=== PATIENT | female | born 1965 | race Caucasian/White ===

== ENCOUNTER 2021-02-25 14:41 | Emergency (ER) | payer BC, SELFPAY ==
[2021-02-25 14:48] VITALS: BP 139/87; PULSE 91; RESP 18; TEMP 37.1; O2SAT 98
--- NOTE | 2021-02-25 15:15 | DI.RAD_ITS ---
Exam(s) XR ABDOMEN FLAT UPRIGHT EXAM: XR ABDOMEN FLAT UPRIGHT CLINICAL HISTORY: abd pain. TECHNIQUE: 2D digital imaging was performed. COMPARISON: No exams were available for comparison FINDINGS: Supine and upright views the abdomen reveal nonspecific bowel gas pattern. No evidence of bowel obst ruction. No free air. Phleboliths are seen both sides of pelvis. No obvious calcification over the kidneys or course of the ureters. Chronic multilevel degenerative disc disease in the lumbar spine noted. IMPRESSION: No bowel obstruction. No free air. DATA REPOSITORY: RADIATION DOSE DELIVERED:
[2021-02-25] MEDS: FAMOTIDINE 20 MG/50 ML BAG 200 MG IVPB (15:31)
[2021-02-25] MEDS: Mylanta Suspension 30 ML CUP PO (15:32)
[2021-02-25 15:36] LABS: Abs Immature Grans 0.04 10^3/uL (0.0-0.06); Absolute Basophil Count 0.04 10^3/uL (0.0-0.2); Absolute Eosinophil Count 0.29 10^3/uL (0.0-0.7); Absolute Lymphocyte Count 1.43 10^3/uL (1.2-3.4); Absolute Monocyte Count 0.85 10^3/uL (0.1-0.8); Basophils % 0.4; Eosinophils % 2.6; HCT 38.6 % (36.0-46.0); HGB 13.1 g/dL (11.2-15.7); Immature Grans % 0.4; Lymphocytes % 12.8; MCH 28.1 pg (27.0-33.0); MCHC 33.9 % (32.0-36.0); MCV 82.8 fL (80-95); MPV 9.5 fL (8.0-11.0); Monocytes % 7.6; Neutrophils % 76.2; Nucleated RBC 0 %; Platelet Count 272 10^3/uL (130-400); RBC 4.66 10^6/uL (3.93-5.22); RDW 12.3 % (11.7-14.6); RDW-SD 37.2 fL; WBC 11.21 10^3/uL (4.4-10.8)
[2021-02-25 15:44] LABS: Absolute Neutrophil Count 8.54 10^3/uL (1.2-6.7)
[2021-02-25 15:47] LABS: Magnesium 2.3 mg/dL (1.8-2.4)
[2021-02-25 15:48] LABS: ALT 26 U/L (14-59); AST 14 U/L (15-37); Albumin 3.9 g/dL (3.4-5.0); Alkaline Phosphatase 99 U/L (46-116); Anion Gap 9.7 mmol/L (3-11); BUN 11 mg/dL (7-18); Bilirubin, Total 0.8 mg/dL (0.2-1.0); CO2 26.3 mmol/L (21.0-32.0); CREATININE 0.8 mg/dL (0.55-1.02); Calcium 9.1 mg/dL (8.5-10.1); Chloride 100 mmol/L (98-107); Glucose 102 mg/dL (74-106); Lipase 103 U/L (73-393); Potassium 3.6 mmol/L (3.5-5.1); Sodium 136 mmol/L (136-145)
[2021-02-25] MEDS: Pantoprazole 40 MG VIAL (17:23)
--- NOTE | 2021-02-25 18:00 | ED.GENADUL_ITS ---
Discharge Plan Disposition Patient Disposition: HOME Condition: Stable Discharge Details Clinical Impression: Gastritis, Epigastric abdominal pain Primary Care Provider: Sherron,Local ED Provider: David Mckeon Home Meds and New Rx's Prescriptions: New pantoprazole [Protonix] 40 mg tablet,delayed release (DR/EC) 40 mg PO DAILY Qty: 30 RF: 0 famotidine [Pepcid] 20 mg tablet 20 mg PO BID Qty: 60 RF: 0 Continued Zyrtec 10 mg Capsule 10 mg PO DAILY RF: 0 Discharge Instructions Instructions: Gastritis (ED) Additional Instructions: Please take antiacid as prescribed. If pain persists you will need to follow-up with a nude model or [facility] general surgery for additional diagnostic testing. Please follow-up with your primary care physician. Call tomorrow. Please return to the emergency department immediately for any worsening or new concerning symptoms. Referrals: [facility] [Provider Group] Discharge Data Discharge Date/Time-TO BE ENTERED AT DEPARTURE: 02/25/21 18:04 Medical Decision Making 55-year-old female here with epigastric abdominal pain. Patient was significant life stressors recently. Patient notes poor appetite, vomiting on Monday. Suspect gastric ulcer versus gastritis. Abdominal x-ray reviewed and interpreted by radiology: No free air. No obstruction. Patient was given Pepcid IV and Protonix IV. She was reassessed and pain did improve. Plan to discharge with outpatient follow-up to be scheduled should symptoms not continue to improve. Disposition decision was made weighing the risks and benefits of hospitalization versus outpatient treatment, the risk for further decompensation, and the patient's wishes. The patient was stable and requested discharge. Prior to discharge, my usual and customary return precautions were reviewed with the patient - this included follow-up instructions and reason to return to the emergency department if condition worsens, does not improve as expected, or other new concerns arise. Lab Data Lab results reviewed: Yes I reviewed the patient's lab results. Labs: Laboratory Tests Range/Units 02/25/21 02/25/21 02/25/21 15:30 15:30 15:30 WBC (4.4-10.8) 10^3/uL 11.21 H RBC (3.93-5.22) 10^6/uL 4.66 Hgb (11.2-15.7) g/dL 13.1 Hct (36.0-46.0) % 38.6 MCV (80-95) fL 82.8 MCH (27.0-33.0) pg 28.1 MCHC (32.0-36.0) % 33.9 RDW (11.7-14.6) % 12.3 Plt Count (130-400) 10^3/uL 272 MPV (8.0-11.0) fL 9.5 Immature Gran % 0.4 Neutrophils % 76.2 Lymphocytes % 12.8 Monocytes % 7.6 Eosinophils % 2.6 Basophils % 0.4 Nucleated RBC % % 0 Absolute Neutrophils (1.2-6.7) 10^3/uL 8.54 H Absolute Lymphocytes (1.2-3.4) 10^3/uL 1.43 Absolute Monocytes (0.1-0.8) 10^3/uL 0.85 H Absolute Eosinophils (0.0-0.7) 10^3/uL 0.29 Absolute Basophils (0.0-0.2) 10^3/uL 0.04 Sodium (136-145) mmol/L 136 Potassium (3.5-5.1) mmol/L 3.6 Chloride (98-107) mmol/L 100 Carbon Dioxide (21.0-32.0) mmol/L 26.3 Anion Gap (3-11) mmol/L 9.7 BUN (7-18) mg/dL 11 Creatinine (0.55-1.02) mg/dL 0.8 Estimated GFR/1.73 m2 (mL/min/1.73m2) >= 60.00 Glucose (74-106) mg/dL 102 Calcium (8.5-10.1) mg/dL 9.1 Magnesium (1.8-2.4) mg/dL 2.3 Total Bilirubin (0.2-1.0) mg/dL 0.8 AST (15-37) U/L 14 L ALT (14-59) U/L 26 Alkaline Phosphatase (46-116) U/L 99 Total Protein (6.4-8.2) g/dL 8.0 Albumin (3.4-5.0) g/dL 3.9 Lipase (73-393) U/L 103 Patient ABO/Rh Antibody Screen Range/Units 02/25/21 15:30 WBC (4.4-10.8) 10^3/uL RBC (3.93-5.22) 10^6/uL Hgb (11.2-15.7) g/dL Hct (36.0-46.0) % MCV (80-95) fL MCH (27.0-33.0) pg MCHC (32.0-36.0) % RDW (11.7-14.6) % Plt Count (130-400) 10^3/uL MPV (8.0-11.0) fL Immature Gran % Neutrophils % Lymphocytes % Monocytes % Eosinophils % Basophils % Nucleated RBC % % Absolute Neutrophils (1.2-6.7) 10^3/uL Absolute Lymphocytes (1.2-3.4) 10^3/uL Absolute Monocytes (0.1-0.8) 10^3/uL Absolute Eosinophils (0.0-0.7) 10^3/uL Absolute Basophils (0.0-0.2) 10^3/uL Sodium (136-145) mmol/L Potassium (3.5-5.1) mmol/L Chloride (98-107) mmol/L Carbon Dioxide (21.0-32.0) mmol/L Anion Gap (3-11) mmol/L BUN (7-18) mg/dL Creatinine (0.55-1.02) mg/dL Estimated GFR/1.73 m2 (mL/min/1.73m2) Glucose (74-106) mg/dL Calcium (8.5-10.1) mg/dL Magnesium (1.8-2.4) mg/dL Total Bilirubin (0.2-1.0) mg/dL AST (15-37) U/L ALT (14-59) U/L Alkaline Phosphatase (46-116) U/L Total Protein (6.4-8.2) g/dL Albumin (3.4-5.0) g/dL Lipase (73-393) U/L Patient ABO/Rh AB Positive Antibody Screen NEGATIVE HPI General Mode of arrival: ambulatory . Date/Time Provider Initiated Documentation: 02/25/21 14:56 . Limitations to Documentation: no limitations . Information obtained by: patient . HPI Narrative: 55-year-old female presents with chief complaint of abdominal pain. Patient notes epigastric abdominal pain over the past 6 days. Pain moderate to severe at times. No associated fever. She did have an episode of vomiting last week. Patient notes that she did have dark-colored stool. No bright red blood per rectum. Patient has tried Tums without significant relief. Patient notes that she recently has had 2 deaths in the family and has been quite stressed and anxious about this. Related Data Home Medications Medication Instructions Recorded Confirmed Zyrtec 10 mg PO DAILY 02/25/21 02/25/21 famotidine [Pepcid] 20 mg PO BID #60 tab 02/25/21 pantoprazole [Protonix] 40 mg PO DAILY #30 tab 02/25/21 Previous Rx's Medication Instructions Recorded famotidine [Pepcid] 20 mg PO BID #60 tab 02/25/21 pantoprazole [Protonix] 40 mg PO DAILY #30 tab 02/25/21 Allergies Allergy/AdvReac Type Severity Reaction Status Date / Time No Known Allergies Allergy Unverified 02/25/21 14:50 General Stated Complaint: Abd Prob MAINE: 3 Review of Systems All systems reviewed & are unremarkable except as noted in HPI and below Constitutional Constitutional: Denies fever(s) Gastrointestinal Gastrointestinal: Reports as per HPI Psychiatric Psychiatric: Reports as per HPI [facility] Social History Smoking/Tobacco Use Status: Never Smoking risk assessment performed?: Yes Alcohol Intake: former Substance use type: does not use Do you feel safe at home: Yes Do you feel safe in your relationship?: Yes Exam Const General: cooperative and no acute distress HENMT Mouth: moist mucous membranes Eyes Conjunctivae: normal conjunctivae Sclera: normal sclerae Neck Neck: trachea midline and supple Resp Auscultation: clear to auscultation bilaterally, no rales, no rhonchi and no wheezes Cardio Rate: regular rate and not tachycardic Rhythm: regular rhythm GI Palpation: soft, not firm, no guarding, no masses, not rigid and tender in the epigastrum Auscultation: normal bowel sounds Skin General skin exam: no rashes or lesions noted Neuro General: patient alert, patient awake, patient oriented x3 and tone normal Extrem General: no edema Psych Appearance: grossly normal Mental Status: mental status grossly normal Speech and Movement: speech and movement normal Course Vital Signs Vital signs: Vital Signs Temperature 37.1 C 02/25/21 14:48 Pulse 91 H 02/25/21 14:48 Respiratory Rate 18 02/25/21 14:48 Blood Pressure 139/87 02/25/21 14:48 Pulse Oximetry 98 02/25/21 14:48 Temperature 37.1 C 02/25/21 14:48 Temperature Source Temporal Artery Scan 02/25/21 14:48 Pulse 91 H 02/25/21 14:48 Respiratory Rate 18 02/25/21 14:48 Respiratory Effort Non-Labored 02/25/21 14:51 Blood Pressure 139/87 02/25/21 14:48 Blood Pressure Position Sitting 02/25/21 14:48 Pulse Oximetry 98 02/25/21 14:48 Oxygen Delivery Method Room Air 02/25/21 14:48 Oxygen Flow Rate 0 02/25/21 14:48 Pain Level 4 02/25/21 14:48 Lab/Test Results Lab/Test Results: Laboratory Tests Range/Units 02/25/21 02/25/21 02/25/21 15:30 15:30 15:30 WBC (4.4-10.8) 10^3/uL 11.21 H RBC (3.93-5.22) 10^6/uL 4.66 Hgb (11.2-15.7) g/dL 13.1 Hct (36.0-46.0) % 38.6 MCV (80-95) fL 82.8 MCH (27.0-33.0) pg 28.1 MCHC (32.0-36.0) % 33.9 RDW (11.7-14.6) % 12.3 Plt Count (130-400) 10^3/uL 272 MPV (8.0-11.0) fL 9.5 Immature Gran % 0.4 Neutrophils % 76.2 Lymphocytes % 12.8 Monocytes % 7.6 Eosinophils % 2.6 Basophils % 0.4 Nucleated RBC % % 0 Absolute Neutrophils (1.2-6.7) 10^3/uL 8.54 H Absolute Lymphocytes (1.2-3.4) 10^3/uL 1.43 Absolute Monocytes (0.1-0.8) 10^3/uL 0.85 H Absolute Eosinophils (0.0-0.7) 10^3/uL 0.29 Absolute Basophils (0.0-0.2) 10^3/uL 0.04 Sodium (136-145) mmol/L 136 Potassium (3.5-5.1) mmol/L 3.6 Chloride (98-107) mmol/L 100 Carbon Dioxide (21.0-32.0) mmol/L 26.3 Anion Gap (3-11) mmol/L 9.7 BUN (7-18) mg/dL 11 Creatinine (0.55-1.02) mg/dL 0.8 Estimated GFR/1.73 m2 (mL/min/1.73m2) >= 60.00 Glucose (74-106) mg/dL 102 Calcium (8.5-10.1) mg/dL 9.1 Magnesium (1.8-2.4) mg/dL 2.3 Total Bilirubin (0.2-1.0) mg/dL 0.8 AST (15-37) U/L 14 L ALT (14-59) U/L 26 Alkaline Phosphatase (46-116) U/L 99 Total Protein (6.4-8.2) g/dL 8.0 Albumin (3.4-5.0) g/dL 3.9 Lipase (73-393) U/L 103 Patient ABO/Rh Antibody Screen Range/Units 02/25/21 15:30 WBC (4.4-10.8) 10^3/uL RBC (3.93-5.22) 10^6/uL Hgb (11.2-15.7) g/dL Hct (36.0-46.0) % MCV (80-95) fL MCH (27.0-33.0) pg MCHC (32.0-36.0) % RDW (11.7-14.6) % Plt Count (130-400) 10^3/uL MPV (8.0-11.0) fL Immature Gran % Neutrophils % Lymphocytes % Monocytes % Eosinophils % Basophils % Nucleated RBC % % Absolute Neutrophils (1.2-6.7) 10^3/uL Absolute Lymphocytes (1.2-3.4) 10^3/uL Absolute Monocytes (0.1-0.8) 10^3/uL Absolute Eosinophils (0.0-0.7) 10^3/uL Absolute Basophils (0.0-0.2) 10^3/uL Sodium (136-145) mmol/L Potassium (3.5-5.1) mmol/L Chloride (98-107) mmol/L Carbon Dioxide (21.0-32.0) mmol/L Anion Gap (3-11) mmol/L BUN (7-18) mg/dL Creatinine (0.55-1.02) mg/dL Estimated GFR/1.73 m2 (mL/min/1.73m2) Glucose (74-106) mg/dL Calcium (8.5-10.1) mg/dL Magnesium (1.8-2.4) mg/dL Total Bilirubin (0.2-1.0) mg/dL AST (15-37) U/L ALT (14-59) U/L Alkaline Phosphatase (46-116) U/L Total Protein (6.4-8.2) g/dL Albumin (3.4-5.0) g/dL Lipase (73-393) U/L Patient ABO/Rh AB Positive Antibody Screen NEGATIVE
[2021-02-25 18:07] VITALS: BP 139/87; PULSE 91; RESP 18; TEMP 37.1; O2SAT 98
== END 2021-02-25 18:04 | disposition home or self-care (01) ==
PROVIDERS: Emergency Provider Student in an Organized Health Care Education/Training Program
DX: K29.00 Acute gastritis without bleeding (principal); R10.13 Epigastric pain
CPT/HCPCS: 80053; 83690; 86850; 86900; 86901; 96374; 96375; 99284; 74019; 83735; 85025; 99283

== ENCOUNTER 2023-10-25 15:19 | Outpatient (CLI) | payer BC, SELFPAY ==
--- NOTE | 2023-10-25 06:00 | DI.RAD_ITS ---
Exam(s) XR PAIN CLINIC LUMBAR SP 2V EXAM: XR PAIN CLINIC LUMBAR SP 2V CLINICAL HISTORY: DX; Lumbar radiculopathy TECHNIQUE: 2D and realtime digital imaging was performed. Radiologist not present. CONTRAST MATERIAL: None. COMPARISON: No exams were available for comparison FINDINGS: Fluoroscopy was provided for pain management therapy. Please refer to procedure report or details. Radiation Exposure Index: Ka,r=12.04 mGy IMPRESSION: As above. RADIATION DOSE DELIVERED:
[2023-10-25 15:30] VITALS: BP 143/90; PULSE 69; RESP 20; TEMP 36.7; O2SAT 99
[2023-10-25 16:05] VITALS: BP 139/95; PULSE 69; RESP 22; O2SAT 98
[2023-10-25] MEDS: methylPREDNISolone ACETATE 80 MG/ML VIAL IJ (16:07)
[2023-10-25] MEDS: Epidural Tray 1 EACH MC (16:07)
[2023-10-25] MEDS: Omnipaque 240 MG/ML 50 ML BTL IJ (16:07)
--- NOTE | 2023-10-25 16:16 | PDOC.PAIN ---
Date of service: 10/25/23 Time of Service: 16:16 Pain Managment Procedure Note Procedure Note Procedure Note: PROCEDURE NOTE LUMBAR EPIDURAL STEROID INJECTION Date of Service: October 25, 2023 Patient:Antonette Sargent? Provider: Heber Hudson DO, MPH Antonette Wood has been referred to the [facility] for a lumbar epidural steroid injection. Pre-operative diagnosis: Lumbosacral Radiculopathy Post-operative diagnosis: Same Pre-Procedure Pain: VAS= 5 /10 Comments: I previously evaluated her in the office. Her symptoms are unchanged. Antonette was interviewed and the medical record was reviewed.? There were no medical, pharmacologic, radiographic or other structural contraindications to attempting fluoroscopically guided Lumbar epidural steroid injection.? Risks, potential side effects, indications, and potential benefits of the procedure were reviewed with Antonette.? Questions and concerns were addressed.? After it was clear that Antonette was fully informed about the procedure, the printed consent form was signed by the patient and myself.? Antonette was placed in the prone position on the fluoroscopy table and automated blood pressure cuff and pulse oximeter applied. The skin entry point for entering/approaching the epidural space for the lumbar epidural steroid injection was marked. Following thorough chlorhexadine preparation of the skin and draping and 1% lidocaine infiltration of the skin entry point and subcutaneous tissues, an 18 gauge Touhy needle was placed and advanced under fluoroscopic guidance and with loss of resistance technique into the L5-S1 epidural space. Needle tip placement and depth were aided and confirmed by fluoroscopy. There was no paresthesia or return of blood or CSF through the needle. 1 mls of Omnipaque 240 was injected with clear epidural spread confirmed with fluoroscopy. 80 mg of Depo-Medrol was? injected. This was followed by 1 ml of preservative-free normal saline to flush the steroid out of the needle. There was no unusual discomfort expressed by Antonette. The needle was withdrawn without difficulty. (49 mls of Omnipaque was wasted) Antonette was observed and was without hemodynamic, neurologic, or allergic reactions.? Fluoroscopic images were digitally archived. Antonette's vital signs were stable throughout the procedure and were as recorded in nursing records. Follow up plans and appointments were discussed with Antonette. Post procedure instruction was given as documented in nursing records and having met discharge criteria Antonette was discharged from the [facility]. COMMENTS: No apparent complications. Post-procedure pain: VAS= 0/10. Antonette to contact [facility] as needed. If at least 50% improvement in pain and/or function for at least 3 months is achieved, this procedure can be repeated. I personally performed this entire procedure. HEBER HUDSON DO, MPH ABPMR-subspecialty board certification in Pain Medicine [facility] [facility]
== END 2023-10-25 15:20 | disposition home or self-care (01) ==
LOC: PC 15:21
PROVIDERS: PCP Family Medicine; Visit Provider Preventive Medicine Occupational Medicine
DX: M54.17 Radiculopathy, lumbosacral region
CPT/HCPCS: 62323; 72100; J1010; Q9967

== ENCOUNTER 2024-02-28 16:53 | Outpatient (CLI) | payer BC, SELFPAY ==
--- NOTE | 2024-02-28 06:00 | DI.RAD_ITS ---
Exam(s) XR PAIN CLINIC LUMBAR SP 2V EXAM: XR PAIN CLINIC LUMBAR SP 2V CLINICAL HISTORY: DX: Lumbar Radiculopathy. TECHNIQUE: Fluoroscopy was provided for the referring physician for guidance with performing pain cl inic injection procedure. COMPARISON: No exams were available for comparison FINDINGS: Please see procedure note for details. Fluoro time: 17 seconds RADIATION DOSE DELIVERED: Ka,r=3.9 mGy
[2024-02-28 17:15] VITALS: BP 159/100; PULSE 62; RESP 14; TEMP 36.3; O2SAT 98
[2024-02-28 17:41] VITALS: PULSE 68; O2SAT 98
[2024-02-28] MEDS: Omnipaque 240 MG/ML 50 ML BTL IJ (17:47)
[2024-02-28] MEDS: methylPREDNISolone ACETATE 80 MG/ML VIAL IJ (17:48)
[2024-02-28] MEDS: Epidural Tray 1 EACH MC (17:48)
[2024-02-28 17:50] VITALS: BP 186/115; PULSE 66
--- NOTE | 2024-02-28 17:51 | PDOC.PAIN_ITS ---
Date of service: 02/28/24 Time of Service: 17:51 Pain Managment Procedure Note Procedure Note Procedure Note: PROCEDURE NOTE LUMBAR EPIDURAL STEROID INJECTION Date of Service: February 28, 2024 Patient:Antonette Sargent? Provider: Heber Hudson DO, MPH Antonette Wood has been referred to the [facility] for a lumbar epidural steroid injection. Pre-operative diagnosis: Lumbosacral Radiculopathy Post-operative diagnosis: Same Pre-Procedure Pain: VAS= 4 /10 Comments: She has her last LESI on 10/25/23 and had >60% pain relief for >3 months. This pain has returned. Antonette was interviewed and the medical record was reviewed.? There were no medical, pharmacologic, radiographic or other structural contraindications to attempting fluoroscopically guided Lumbar epidural steroid injection.? Risks, potential side effects, indications, and potential benefits of the procedure were reviewed with Antonette.? Questions and concerns were addressed.? After it was clear that Antonette was fully informed about the procedure, the printed consent form was signed by the patient and myself.? Antonette was placed in the prone position on the fluoroscopy table and automated blood pressure cuff and pulse oximeter applied. The skin entry point for entering/approaching the epidural space for the lumbar epidural steroid injection was marked. Following thorough chlorhexadine preparation of the skin and draping and 1% lidocaine infiltration of the skin entry point and subcutaneous tissues, an 18 gauge Touhy needle was placed and advanced under fluoroscopic guidance and with loss of resistance technique into the L5-S1 epidural space. Needle tip placement and depth were aided and confirmed by fluoroscopy. There was no paresthesia or return of blood or CSF through the needle. 1 mls of Omnipaque 240 was injected with clear epidural spread confirmed with fluoroscopy. 80 mg of Depo-Medrol was? injected. This was followed by 1 ml of preservative-free normal saline to flush the steroid out of the needle. There was no unusual discomfort expressed by Antonette. The needle was withdrawn without difficulty. (49 mls of Omnipaque was wasted) Antonette was observed and was without hemodynamic, neurologic, or allergic reactions.? Fluoroscopic images were digitally archived. Antonette's vital signs were stable throughout the procedure and were as recorded in nursing records. Follow up plans and appointments were discussed with Antonette. Post procedure instruction was given as documented in nursing records and having met discharge criteria Antonette was discharged from the [facility]. COMMENTS: No apparent complications. Post-procedure pain: VAS= 0/10. Antonette to contact [facility] as needed. If at least 50% improvement in pain and/or function for at least 3 months is achieved, this procedure can be repeated. I personally performed this entire procedure. HEBER HUDSON DO, MPH ABPMR-subspecialty board certification in Pain Medicine [facility]
[2024-02-28 17:52] VITALS: BP 171/109; PULSE 69
== END 2024-02-28 16:54 | disposition home or self-care (01) ==
LOC: PC 16:53
PROVIDERS: PCP Family Medicine; Visit Provider Preventive Medicine Occupational Medicine
DX: M54.17 Radiculopathy, lumbosacral region (principal)
CPT/HCPCS: 62323; 72100; J1010; Q9967